=== PATIENT | female | born 1985 | race African-American/Black ===

== ENCOUNTER 2016-09-21 11:05 | Emergency (ER) | payer OTHER ==
[~2016-09-21] VITALS: Ht 167.6 cm; Wt 81.7 kg
[~2016-09-21 11:05] MED LIST: BACTRIM DS TAB1 EACH PO; IBUPROFEN 600600 M1 PO; IBUPROFEN 800800 MG PO; LORTABELXR PO; NAPROSYN500 MG PO; NOHOMEMEDICATIONS; NORCO 5-325 TA1 EACH PO; ONDANSETRON HCL4 M2 PO; PHENERGAN 25 MG25 M1 PO; PROMETHAZINE-C120 ML PO; SUDAFED 12-HOU120 MG PO; TESSALON PERLE100 MG PO; TRAMADOL 50 MG50 MG PO; ZOFRAN 4 MG ORAL4 MG PO; ZOFRAN ODT4 MG PO; ZPAK PO
[2016-09-21 12:00] LABS: URINE BILIRUBIN NEGATIVE (Negative); URINE BLOOD NEGATIVE (Negative); URINE COLOR YELLOW; URINE GLUCOSE-RANDOM* NEGATIVE (Negative); URINE KETONES NEGATIVE (Negative); URINE LEUKOCYTES-REFLEX NEGATIVE (Negative); URINE PROTEIN (DIPSTICK) NEGATIVE (Negative); URINE SPECIFIC GRAVITY >= 1.030 (1.003-1.035); URINE UROBILINOGEN 0.2 E.U./dl (0.2-1.0)
[2016-09-21 12:14] LABS: ABSOLUTE NEUTROPHILS 2.6 thou/uL (1.4-8.2); BASOPHILS 0.6 % (0.0-2.0); EOSINOPHILS 0.7 % (0.0-3.0); HEMATOCRIT 40.6 % (37.0-47.0); HEMOGLOBIN 13.3 gm/dL (12.0-15.0); LYMPHOCYTES 36.8 % (24.0-44.0); MCH 26.5 pg (26.0-34.0); MCHC 32.8 g/dL (28.0-37.0); MCV 80.8 fL (80.0-100.0); MONOCYTES 10.6 % (1.0-8.0); PLATELET COUNT 248 thou/uL (150-400); POLYS 51.3 % (36.0-66.0); RBC 5.03 mil/uL (4.20-5.00); RDW 14.4 % (10.5-14.5)
[2016-09-21 12:19] LABS: MANUAL DIFF NO
[2016-09-21 12:23] LABS: CALCIUM 9.2 mg/dL (8.5-10.1); CREATININE 0.8 mg/dL (0.6-1.0); POTASSIUM 4.1 mmol/L (3.5-5.1)
[2016-09-21] MEDS ORDERED: PHENERGAN 25 MG25 M1 PO (12:46)
[2016-09-21] MEDS ORDERED: VITAFOL-OB+DHA1 EACH PO (12:46)
[2016-09-21 13:14] VITALS: BP 119/65
== END 2016-09-21 13:15 | disposition home or self-care (01) ==
LOC: ER 11:05
PROVIDERS: Physician Assistant
DX: O26.891 Other specified pregnancy related conditions, first trimester (principal); Z3A.01 Less than 8 weeks gestation of pregnancy; R11.0 Nausea; R51 Headache; R53.1 Weakness

== ENCOUNTER 2018-01-01 23:45 | Emergency (ER) | payer OTHER ==
[~2018-01-01] VITALS: Ht 165.1 cm; Wt 90.7 kg
[~2018-01-01 23:45] MED LIST changes: +AMITRIPTYLINE H10 M3 PO; +VITAFOL-OB+DHA1 EACH PO
[2018-01-01] MEDS ORDERED: NOHOMEMEDICATIONS (23:56)
[2018-01-02] MEDS ORDERED: BACTRIM DS TAB1 EACH PO (01:42)
[2018-01-02 02:06] VITALS: BP 138/100
== END 2018-01-02 02:06 | disposition home or self-care (01) ==
LOC: ER 23:45
DX: L02.811 Cutaneous abscess of head [any part, except face] (principal)

== ENCOUNTER 2018-03-12 22:18 | Emergency (ER) | payer OTHER ==
[~2018-03-12] VITALS: Ht 165.1 cm; Wt 86.2 kg
--- NOTE | ~2018-03-12 | EKG ---
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
[2018-03-12 22:27] VITALS: BP 126/83
== END 2018-03-12 23:30 | disposition home or self-care (01) ==
LOC: ER 22:18
DX: R51 Headache (principal)

== ENCOUNTER 2018-08-14 09:59 | Emergency (ER) | payer OTHER ==
[~2018-08-14] VITALS: Ht 165.1 cm; Wt 90.7 kg
[2018-08-14 09:59] VITALS: BP 121/77
[2018-08-14] MEDS ORDERED: IBUPROFEN 600600 M1 PO (10:35)
== END 2018-08-14 10:46 | disposition home or self-care (01) ==
LOC: ER 09:59
DX: J02.9 Acute pharyngitis, unspecified (principal)

== ENCOUNTER 2018-12-15 01:06 | Emergency (ER) | payer OTHER ==
[~2018-12-15] VITALS: Ht 167.6 cm; Wt 91.2 kg
[2018-12-15] MEDS ORDERED: BACTRIM DS TAB1 EACH PO (02:58)
[2018-12-15] MEDS ORDERED: TRAMADOL 50 MG50 MG PO (02:59)
[2018-12-15 03:12] VITALS: BP 138/95
== END 2018-12-15 03:15 | disposition home or self-care (01) ==
LOC: ER 01:06
DX: L02.31 Cutaneous abscess of buttock (principal)

== ENCOUNTER 2019-05-27 10:52 | Emergency (ER) | payer OTHER ==
[~2019-05-27] VITALS: Ht 165.1 cm; Wt 81.7 kg
[2019-05-27] MEDS ORDERED: AUGMENTIN 875-1 EACH PO (12:25)
[2019-05-27 12:44] VITALS: BP 136/91
== END 2019-05-27 12:42 | disposition home or self-care (01) ==
LOC: ER 10:52
DX: J01.00 Acute maxillary sinusitis, unspecified (principal)

== ENCOUNTER 2020-03-03 10:58 | Emergency (ER) | payer OTHER ==
[~2020-03-03] VITALS: Ht 165.1 cm; Wt 92.5 kg
[~2020-03-03 10:58] MED LIST changes: +AUGMENTIN 875-1 EACH PO
[2020-03-03 12:26] LABS: ABSOLUTE NEUTROPHILS 2.6 thou/uL (1.4-8.2); BASOPHILS 0.3 % (0.0-2.0); EOSINOPHILS 0.4 % (0.0-3.0); HEMATOCRIT 37.2 % (37.0-47.0); HEMOGLOBIN 12.2 gm/dL (12.0-15.0); LYMPHOCYTES 33.9 % (24.0-44.0); MCHC 32.9 g/dL (28.0-37.0); MCV 82.1 fL (80.0-100.0); MONOCYTES 10.9 % (1.0-8.0); PLATELET COUNT 240 thou/uL (150-400); POLYS 54.5 % (36.0-66.0); RBC 4.53 mil/uL (4.20-5.00); RDW 14.5 % (10.5-14.5); WBC 4.7 thou/uL (4.0-11.0)
[2020-03-03 12:38] LABS: CALCIUM 8.7 mg/dL (8.5-10.1); CREATININE 0.7 mg/dL (0.6-1.0); MAGNESIUM 2.1 mg/dL (1.8-2.4)
[2020-03-03 13:44] VITALS: BP 124/74
== END 2020-03-03 13:44 | disposition home or self-care (01) ==
LOC: ER 10:58
PROVIDERS: Emergency Medicine
DX: J02.9 Acute pharyngitis, unspecified (principal); R53.1 Weakness; R53.83 Other fatigue; Z20.828 Contact with and (suspected) exposure to other viral communicable diseases

== ENCOUNTER 2020-06-25 01:16 | Emergency (ER) | payer OTHER ==
[~2020-06-25] VITALS: Ht 167.6 cm; Wt 85.3 kg
[2020-06-25 01:20] VITALS: BP 166/105
[2020-06-25] MEDS ORDERED: HYDROCODON-ACE1 EAC7 PO (03:28)
[2020-06-25] MEDS ORDERED: MOBIC15 MG PO (03:28)
== END 2020-06-25 03:46 | disposition home or self-care (01) ==
LOC: ER 01:16
DX: M25.511 Pain in right shoulder (principal)

== ENCOUNTER 2021-01-03 06:42 | Emergency (ER) | payer OTHER ==
[~2021-01-03] VITALS: Ht 167.6 cm; Wt 88.0 kg
[~2021-01-03 06:42] MED LIST changes: +HYDROCODON-ACE1 EAC7 PO; +MOBIC15 MG PO
[2021-01-03 07:21] LABS: ABSOLUTE NEUTROPHILS 3.5 thou/uL (1.4-8.2); BASOPHILS 0.4 % (0.0-2.0); EOSINOPHILS 0.2 % (0.0-3.0); HEMATOCRIT 37.3 % (37.0-47.0); HEMOGLOBIN 12.5 gm/dL (12.0-15.0); LYMPHOCYTES 8.8 % (24.0-44.0); MCH 27.1 pg (26.0-34.0); MCHC 33.4 g/dL (28.0-37.0); MCV 81.1 fL (80.0-100.0); MONOCYTES 15.8 % (1.0-8.0); PLATELET COUNT 206 thou/uL (150-400); POLYS 74.8 % (36.0-66.0); RBC 4.61 mil/uL (4.20-5.00); RDW 14.6 % (10.5-14.5); WBC 4.7 thou/uL (4.0-11.0)
[2021-01-03 07:28] LABS: CALCIUM 8.5 mg/dL (8.5-10.1); POTASSIUM 4.3 mmol/L (3.5-5.1)
[2021-01-03 07:35] LABS: ALBUMIN 3.6 g/dL (3.4-5.0); TOTAL BILIRUBIN 0.7 mg/dL (0.2-1.0); TOTAL PROTEIN 7.5 g/dL (6.4-8.2)
[2021-01-03 08:18] VITALS: BP 108/83
== END 2021-01-03 08:30 | disposition home or self-care (01) ==
LOC: ER 06:42
PROVIDERS: Emergency Medicine
DX: U07.1 COVID-19 (principal)

== ENCOUNTER 2021-01-10 17:38 | Emergency (ER) | payer OTHER ==
[~2021-01-10] VITALS: Ht 167.6 cm; Wt 88.0 kg
[2021-01-10 18:18] LABS: ABSOLUTE NEUTROPHILS 2.2 thou/uL (1.4-8.2); BASOPHILS 0.6 % (0.0-2.0); EOSINOPHILS 0.1 % (0.0-3.0); HEMATOCRIT 42.3 % (37.0-47.0); HEMOGLOBIN 13.8 gm/dL (12.0-15.0); MCH 26.5 pg (26.0-34.0); MCHC 32.6 g/dL (28.0-37.0); MCV 81.1 fL (80.0-100.0); MONOCYTES 8.7 % (1.0-8.0); PLATELET COUNT 191 thou/uL (150-400); POLYS 58.6 % (36.0-66.0); RBC 5.21 mil/uL (4.20-5.00); RDW 14.2 % (10.5-14.5); WBC 3.8 thou/uL (4.0-11.0)
[2021-01-10 18:32] LABS: ANION GAP 4 mmol/L (7-16); BUN 9 mg/dL (7-18); CALCIUM 8.6 mg/dL (8.5-10.1); CHLORIDE 103 mmol/L (98-107); CO2 31 mmol/L (21-32); CREATININE 1.1 mg/dL (0.6-1.0); GLUCOSE 99 mg/dL (74-106); POTASSIUM 4.3 mmol/L (3.5-5.1); SODIUM 138 mmol/L (136-145)
[2021-01-10 18:42] LABS: ALBUMIN 3.5 g/dL (3.4-5.0); SGOT 22 U/L (15-37); SGPT 19 U/L (14-59); TOTAL BILIRUBIN 0.3 mg/dL (0.2-1.0); TOTAL PROTEIN 7.7 g/dL (6.4-8.2); TROPONIN-I <0.06 ng/mL (<0.06)
[2021-01-10 19:42] LABS: URINE BILIRUBIN NEGATIVE (Negative); URINE BLOOD 3+ (Negative); URINE CLARITY SL CLOUDY; URINE COLOR YELLOW; URINE GLUCOSE-RANDOM* NEGATIVE (Negative); URINE KETONES TRACE (Negative); URINE LEUKOCYTES-REFLEX TRACE (Negative); URINE NITRITE-REFLEX NEGATIVE (Negative); URINE UROBILINOGEN 0.2 E.U./dl (0.2-1.0)
[2021-01-10 19:44] LABS: SSA (PROTEIN CONFIRMATORY) TRACE (APPROX. 5) mg/dL (Negative)
[2021-01-10 19:45] LABS: BACTERIA-REFLEX None Seen /HPF (None Seen); CASTS None Seen /LPF (None Seen); CRYSTALS None Seen /LPF (None Seen); SQUAMOUS 0-3 Few /LPF (0-3); URINE RBC >20 Many /HPF (NONE SEEN); URINE WBC-REFLEX 0-5 Rare /HPF (0-5)
[2021-01-10] MEDS ORDERED: PROMETH-CODEIN 65 ML PO (20:33)
[2021-01-10] MEDS ORDERED: PREDNISONE 20 M20 MG PO (20:33)
[2021-01-10] MEDS ORDERED: DOXYCYCLINE 10100 MG PO (20:33)
[2021-01-10 21:08] VITALS: BP 120/84
--- NOTE | 2021-01-11 10:33 | EKG ---
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1985 Requested By: George Sullivan Order Number: [id number] MD: Alfred Patel Measurements Intervals [place] Rate: 94 P: 70 VT: 132 QRS: 0 QRSD: 69 T: 31 QT: 331 QTc: 414 Interpretive Statements Sinus rhythm Left atrial enlargement Poor septal R wave progression Compared to ECG 03/12/2018 23:05:04 No significant changes found Electronically Signed On 01-11-2021 10:33:47 CDT by Alfred Patel [email or web address] <ELECTRONICALLY SIGNED> By: Alfred Patel MD, [facility] 01/11/21 1033 1757 1757 Alfred Patel MD, FACC /EPI
== END 2021-01-10 21:09 | disposition home or self-care (01) ==
LOC: ER 17:38
PROVIDERS: Physician Assistant
DX: U07.1 COVID-19 (principal); J18.9 Pneumonia, unspecified organism